=== PATIENT | female | born 1960 | race African-American/Black ===

== ENCOUNTER 2017-08-10 07:32 | Emergency (ER) | payer OTHER ==
[~2017-08-10] VITALS: Ht 165.1 cm; Wt 113.4 kg
[2017-08-10 07:47] VITALS: BP 155/81
--- NOTE | 2017-08-10 08:14 | RAD ---
ANKLE RIGHT 3V Clinical Indication: FALL THIS AM, PAIN AND SWELLING Comparison: None. Findings: Acute, oblique, mildly comminuted and displaced fracture of the distal fibular metadiaphysis. Ossific density inferior to the medial malleolus consistent with avulsion injury. Ossific densities anterior to the ankle on lateral view with unknown step off point. Widening of the medial clear space measuring 0.8 cm. Calcaneal enthesophyte. Moderate medial ankle soft tissue swelling. IMPRESSION: 1. Acute, oblique, mildly comminuted and displaced fracture of the distal fibular metadiaphysis. 2. Ossific density inferior to the medial malleolus consistent with avulsion injury. 3. Ossific densities anterior to the ankle on the lateral view with unknown step off point. 4. Widening of the medial clear space consistent with ligamentous injury. 5. Moderate medial ankle soft tissue swelling.
[2017-08-10] MEDS ORDERED: ACETAMINOPHEN 325 MG TABLET. PO ONE (08:30)
--- NOTE | 2017-08-10 08:34 | PHYS DOC ---
Past Medical History Past Medical History: Arthritis, Hypertension Past Surgical History: Hysterectomy Alcohol Use: None Drug Use: None Adult General Chief Complaint Chief Complaint: FOOT INJURY PAIN HPI HPI 56-year-old female presenting to the emergency department today after sustaining a mechanical fall and injuring her right ankle. She has pain that is moderate intermittent sharp nonradiating and worse with movement of the extremity. She denies any other injuries. She denies hitting her head or losing consciousness. She denies neck pain chest pain or abdominal pain. Review of systems is negative for fevers chills nausea headache vision changes numbness weakness or tingling. All other review of systems is negative unless otherwise noted in history of present illness. ED course: 56-year-old female presenting to the emergency department after sustaining a closed neurovascularly intact right comminuted fibular fracture diagnosed on x-ray. Pertinent physical examination findings show normal sensation of the foot with a palpable pulse and 2 second cap refill. The patient was splinted in a posterior splint. Oral Lortab given in the emergency department for pain control. Discussed the case with Dr. Wilson. She recommends oral aspirin to follow up either on Friday in clinic in [facility] or on Friday at [facility]. Review of Systems Review of Systems SEE ABOVE. Current Medications Current Medications Current Medications Medications (Trade) Dose Ordered Sig/Bubba Start Time Stop Time Status Last Admin Dose Admin Acetaminophen (Tylenol) 650 mg 1X ONCE 08/10/17 08:30 08/10/17 08:30 DC Acetaminophen/ Hydrocodone Bitart (Lortab 5/325) 2 tab 1X ONCE 08/10/17 08:45 08/10/17 08:46 DC 08/10/17 08:15 2 TAB Allergies Allergies Allergies Coded Allergies Type Severity Reaction Last Updated Verified No Known Drug Allergies 08/10/17 No Physical Exam Physical Exam SEE ABOVE Constitutional: Well developed, well nourished, no acute distress, non-toxic appearance. HENT: Normocephalic, atraumatic, bilateral external ears normal, oropharynx moist, no oral exudates, nose normal. [] Eyes: PERRLA, EOMI, conjunctiva normal, no discharge. Neck: Normal range of motion, no tenderness, supple, no stridor. Cardiovascular:Heart rate regular rhythm, no murmur [] Lungs & Thorax: Bilateral breath sounds clear to auscultation Abdomen: Bowel sounds normal, soft, no tenderness, no masses, no pulsatile masses. [] Skin: Warm, dry, no erythema, no rash. Back: No tenderness, no CVA tenderness. [] Extremities: See above. Otherwise nontender knee. Normal range of motion of the knee and hip. Normal range of motion of both hips. Nontender otherwise in other extremities and without any acute traumatic abnormalities. Neurologic: Alert and oriented X 3, normal motor function, normal sensory function, no focal deficits noted. Psychologic: Affect normal, judgement normal, mood normal. [] Current Patient Data Vital Signs Vital Signs Date Time Temp Pulse Resp B/P (MAP) Pulse Ox O2 Delivery O2 Flow Rate FiO2 08/10/17 07:47 98.5 90 20 98 Room Air 98.5 EKG EKG [] Radiology/Procedures Radiology/Procedures [] Course & Med Decision Making Course & Med Decision Making Pertinent Labs and Imaging studies reviewed. (See chart for details) [] Dragon Disclaimer Dragon Disclaimer This electronic medical record was generated, in whole or in part, using a voice recognition dictation system. Departure Departure Impression: Primary Impression: Closed right ankle fracture Disposition: HOME, SELF-CARE Condition: STABLE Referrals: SALO RAYMOND MD (PCP) GUILLAUME WILSON MD Patient Instructions: Ankle Fracture Additional Instructions: Thank you for allowing us to participate in your care today. Follow-up with Dr. Wilson either on Friday [facility] or on Friday at [facility]. Call your Primary Doctor tomorrow and inform them of your visit today. If you do not have a primary care provider you can ask for a list of our primary care providers. Return to the emergency department you have any new or concerning findings. This should be evaluated by the primary care physician and any necessary consulting services for continued management within a few days after discharge. Return to emergency room if you have any new or concerning symptoms including but not limited to fever, chills, nausea, vomiting, intractable pain, any new rashes, chest pain, shortness of air, uncontrolled bleeding, difficulty breathing, and/or vision loss. Scripts Aspirin (ASPIRIN) 325 Mg Tablet 1 TAB PO DAILY, #7 TAB 0 Refills Prov: ANTONIO COVARRUBIAS MD 10/29/17 Hydrocodone Bit/Acetaminophen (HYDROCODONE-APAP 5-325 ) 1 Each Tablet 1 TAB PO PRN Q6HRS Y for PAIN, #15 TAB 0 Refills Be careful as this medication may cause you to be drowsy or tired. Do not drive on this medication. Prov: ANTONIO COVARRUBIAS MD 08/10/17 ANTONIO COVARRUBIAS MD Aug 10, 2017 08:34
[2017-08-10] MEDS ORDERED: HYDR-2758 PO (08:40)
[2017-08-10] MEDS ORDERED: HYDROcodone/APAP 5/325MG 1 TAB TABLET PO ONE (08:45)
[2017-08-10] MEDS ORDERED: ASPI325T8 PO (08:57)
--- NOTE | 2017-08-10 09:31 | RAD ---
TIBIA FIBULA RIGHT Clinical Indication: ankle fracture Comparison: Ankle radiograph performed same day. Findings: Redemonstration of distal fibular metadiaphysis fracture. No other acute fracture or malalignment. Well corticated ossific density in the soft tissues anterior to the lateral tibial plateau may relate to remote injury. Patellar enthesophyte. Moderate tricompartmental arthrosis. Bony mineralization is normal for the patient's age. No significant soft tissue abnormality. No radiopaque foreign body. IMPRESSION: Redemonstration of distal fibular metadiaphysis fracture. No other acute fracture or malalignment.
--- NOTE | 2017-08-10 09:46 | RAD ---
ANKLE RIGHT 3V Clinical Indication: ankle fracture, postreduction Comparison: Prereduction radiograph performed same day. Findings: Interval casting obscures fine osseous detail. Interval improved alignment of the distal fibular metadiaphysis comminuted fracture with persistent mild posterior displacement of the distal fracture fragment. Avulsion fracture fragments seen inferior to the medial malleolus and anterior to the tibiotalar joint space are not well seen on the current exam. Slightly improved widening of the medial clear space currently measuring 0.7 cm, previously 0.8 cm. Moderate soft tissue swelling of the ankle. IMPRESSION: 1. Interval improved alignment of the distal fibular metadiaphysis comminuted fracture with persistent mild posterior displacement of the distal fracture fragment. 2. Slightly improved widening of the medial clear space currently measuring 0.7 cm, previously 0.8 cm.
== END 2017-08-10 09:18 | disposition home or self-care (01) ==
LOC: ER 07:32
DX: S82.831A Other fracture of upper and lower end of right fibula, initial encounter for closed fracture (principal); I10 Essential (primary) hypertension; M19.90 Unspecified osteoarthritis, unspecified site; W18.39XA Other fall on same level, initial encounter; Y93.89 Activity, other specified; Y92.89 Other specified places as the place of occurrence of the external cause; Y99.8 Other external cause status
CPT/HCPCS: 29515; 73590; 73610; 99284-25

== ENCOUNTER 2018-08-04 16:09 | Emergency (ER) | payer OTHER ==
[~2018-08-04] VITALS: Ht 165.1 cm; Wt 113.4 kg
[~2018-08-04 16:09] MED LIST: ASPI325T8 PO; HYDR-2758 PO
[2018-08-04 16:38] VITALS: BP 174/95
[2018-08-04] MEDS ORDERED: HYDROcodone/APAP 5/325MG 1 TAB TABLET PO ONE (17:15)
[2018-08-04] MEDS ORDERED: LIDOCAINE WITH 8.4% SOD BICARB 3 ML DISP.SYRIN. INJ ONE (17:30)
[2018-08-04] MEDS ORDERED: CEPH-264 PO (18:00)
[2018-08-04] MEDS ORDERED: HYDR-971 PO (18:00)
--- NOTE | 2018-08-04 18:00 | PHYS DOC ---
Past Medical History Past Medical History: Arthritis, Hypertension Past Surgical History: Hysterectomy Additional Past Surgical Histo: ankle Alcohol Use: Occasionally Drug Use: None Adult General Chief Complaint Chief Complaint: FOREIGN BODY HPI HPI Patient is a 57 year old female who presents with with a nose ring embedded into her nose times months. The nose is now red and 1+ swelling and has a exudate covering the top whole of the nose where the earring is supposed to be. Patient rates her pain a 6 out of 10 denies any current fever. Patient states it was draining but she did not look to see what it was draining this morning. No known drug allergies and states she has a history of hypertension which she does not take medication for. Review of Systems Review of Systems Constitutional: Denies fever or chills [] Eyes: Denies change in visual acuity, redness, or eye pain [] HENT: Denies nasal congestion or sore throat [] Respiratory: Denies cough or shortness of breath [] Cardiovascular: No additional information not addressed in HPI [] GI: Denies abdominal pain, nausea, vomiting, bloody stools or diarrhea [] : Denies dysuria or hematuria [] Musculoskeletal: Denies back pain or joint pain [] Integument: Embedded nasal earring in the right nare. Denies rash or skin lesions [] Neurologic: Denies headache, focal weakness or sensory changes [] Endocrine: Denies polyuria or polydipsia [] All other systems were reviewed and found to be within normal limits, except as documented in this note. Current Medications Current Medications Current Medications Medications (Trade) Dose Ordered Sig/Bubba Start Time Stop Time Status Last Admin Dose Admin Acetaminophen/ Hydrocodone Bitart (Lortab 5/325) 1 tab 1X ONCE 08/04/18 17:15 08/04/18 17:16 DC 08/04/18 17:38 1 TAB Lidocaine/Sodium Bicarbonate (Buffered Lidocaine 1%) 3 ml 1X ONCE 08/04/18 17:30 08/04/18 17:31 DC 08/04/18 17:38 3 ML Allergies Allergies Allergies Coded Allergies Type Severity Reaction Last Updated Verified No Known Drug Allergies 08/10/17 No Physical Exam Physical Exam Constitutional: Well developed, well nourished, no acute distress, non-toxic appearance. [] HENT: Normocephalic, atraumatic, bilateral external ears normal, oropharynx moist, no oral exudates, nose normal. [] Eyes: PERRLA, EOMI, conjunctiva normal, no discharge. [] Neck: Normal range of motion, no tenderness, supple, no stridor. [] Cardiovascular:Heart rate regular rhythm, no murmur [] Lungs & Thorax: Bilateral breath sounds clear to auscultation [] Abdomen: Bowel sounds normal, soft, no tenderness, no masses, no pulsatile masses. [] Skin: Right nare redness and 1+ edema due to a embedded nasal earring. Warm, dry , no erythema, no rash. [] Back: No tenderness, no CVA tenderness. [] Extremities: No tenderness, no cyanosis, no clubbing, ROM intact, no edema. [] Neurologic: Alert and oriented X 3, normal motor function, normal sensory function, no focal deficits noted. [] Psychologic: Affect normal, judgement normal, mood normal. [] Current Patient Data Vital Signs Vital Signs Date Time Temp Pulse Resp B/P (MAP) Pulse Ox O2 Delivery O2 Flow Rate FiO2 08/04/18 17:38 99 Room Air 08/04/18 16:38 99.0 83 20 174/95 (121) 99.0 EKG EKG [] Radiology/Procedures Radiology/Procedures [] Course & Med Decision Making Course & Med Decision Making Patient is a 57 year old female who presents with with a nose ring embedded into her nose times months. Afebrile. The nose is now red and 1+ swelling and has a exudate covering the top whole of the nose where the earring is supposed to be. Patient rates her pain a 6 out of 10 denies any current fever. Patient states it was draining but she did not look to see what it was draining this morning. There are no signs of drainage from the piercing area. No known drug allergies and states she has a history of hypertension which she does not take medication for. The nose is numbed with buffering lidocaine and I was able to push the earring back up through the whole in the earring was removed. Patient tolerated well. I did give her dose and [place] in the ED. I will send her home with a prescription for [place] and Keflex antibiotic. She needs to follow-up with her primary care doctor within the next 48 hours for wound check or she can return to the ED. [] Dragon Disclaimer Dragon Disclaimer This electronic medical record was generated, in whole or in part, using a voice recognition dictation system. Departure Departure Impression: Primary Impression: Foreign body (FB) in soft tissue Additional Impression: Infection, skin Disposition: 01 HOME, SELF-CARE Condition: STABLE Referrals: SALO RAYMOND MD (PCP) Patient Instructions: Skin Infections Additional Instructions: Follow-up in the ED or with his primary care within 48 hours for a wound check. Take medications as prescribed. Scripts Cephalexin (KEFLEX) 500 Mg Capsule 1 CAP PO BID, #14 CAP Prov: SARY BAER APRN 08/04/18 Hydrocodone/Apap 5-325 (NORCO 5-325 TABLET) 1 Each Tablet 1 TAB PO PRN Q6HRS PRN for PAIN, #10 TAB 0 Refills Prov: SARY BAER APRN 08/04/18 Problem Qualifiers SARY BAER APRN Aug 04, 2018 18:00
== END 2018-08-04 18:38 | disposition home or self-care (01) ==
LOC: ER 16:09
DX: S00.35XA Superficial foreign body of nose, initial encounter (principal); L08.9 Local infection of the skin and subcutaneous tissue, unspecified; I10 Essential (primary) hypertension; Z90.710 Acquired absence of both cervix and uterus; W45.8XXA Other foreign body or object entering through skin, initial encounter; Y93.89 Activity, other specified; Y92.89 Other specified places as the place of occurrence of the external cause; Y99.8 Other external cause status
CPT/HCPCS: 99284

== ENCOUNTER → 2018-08-19 | Outpatient (CLI) | payer OTHER ==
[2018-08-04 16:38] VITALS: BP 174/95
[~2018-08-19] MED LIST changes: +CEPH-264 PO; +HYDR-971 PO
== END | disposition home or self-care (01) ==
LOC: LAB 13:01
PROVIDERS: ATTEND Internal Medicine Cardiovascular Disease
DX: J06.9 Acute upper respiratory infection, unspecified (principal); R05 Cough
CPT/HCPCS: 87070; 87880

== ENCOUNTER → 2018-08-20 | Outpatient (CLI) | payer OTHER ==
[2018-08-04 16:38] VITALS: BP 174/95
[2018-08-20 11:28] LABS: BASO # 0.1 x10^3/uL (0.0-0.2); BASO % 1 % (0-3); EOS # 0.2 x10^3/uL (0.0-0.7); EOS % 4 % (0-3); HEMATOCRIT 38.8 % (36.0-47.0); HEMOGLOBIN 13.4 g/dL (12.0-15.5); LYMPH # 2.4 x10^3/uL (1.0-4.8); LYMPH % 41 % (24-48); MEAN CORPUSCULAR HEMOGLOBIN 34 pg (25-35); MEAN CORPUSCULAR HGB CONC 35 g/dL (31-37); MEAN CORPUSCULAR VOLUME 97 fL (79-100); MONO # 0.4 x10^3/uL (0.0-1.1); MONO % 8 % (0-9); NEUT # 2.8 x10^3uL (1.8-7.7); NEUT % 47 % (31-73); PLATELET COUNT 396 x10^3/uL (140-400); RED BLOOD COUNT 3.98 x10^6/uL (3.50-5.40); RED CELL DISTRIBUTION WIDTH 13.4 % (11.5-14.5)
[2018-08-20 11:37] LABS: ALBUMIN 3.9 g/dL (3.4-5.0); ALBUMIN/GLOBULIN RATIO 0.8 (1.0-1.7); CALCIUM 9.4 mg/dL (8.5-10.1); CHOLESTEROL/HDL RATIO 3.3; CREATININE 0.7 mg/dL (0.6-1.0); GFR 104.7; POTASSIUM 3.9 mmol/L (3.5-5.1); TOTAL BILIRUBIN 0.4 mg/dL (0.2-1.0); TOTAL PROTEIN 8.7 g/dL (6.4-8.2)
[2018-08-20 23:12] LABS: HEMOGLOBIN A1C 5.1 % (4.8-5.6)
== END | disposition home or self-care (01) ==
LOC: LAB 10:49
PROVIDERS: ATTEND Internal Medicine Cardiovascular Disease
DX: I10 Essential (primary) hypertension (principal); J06.9 Acute upper respiratory infection, unspecified
CPT/HCPCS: 36415; 80053; 80061; 83036; 83695; 85025; 86141

== ENCOUNTER → 2021-07-23 | Outpatient (CLI) | payer OTHER ==
[~2021-07-23] MED LIST changes: -HYDR-2758 PO; +HYDR-2761 PO; +HYDR-3164 PO; -HYDR-971 PO
--- NOTE | 2021-07-23 13:42 | RAD ---
EXAM: LUMBAR SPINE 3 VIEWS. HISTORY: Low back pain. COMPARISON: None. FINDINGS: Alignment is maintained. Vertebral body heights are maintained, and no fractures are identi fied. Intervertebral disc heights are maintained. There is mild endplate remodeling from L2 through L 5. 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 There is moderate osteoarthritis at both sacroiliac joints. IMPRESSION: 1. 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 Sacroiliac osteoarthritis is modera te bilaterally. Electronically signed by: Bibi Olsen MD (07/23/2021 1:39 PM) [id number]
== END ==
LOC: RAD 10:34
PROVIDERS: ATTEND Family Medicine
DX: Z02.71 Encounter for disability determination (principal); M47.817 Spondylosis without myelopathy or radiculopathy, lumbosacral region; M46.1 Sacroiliitis, not elsewhere classified
CPT/HCPCS: 72100